=== PATIENT | male | born 1955 | race Caucasian/White ===

== ENCOUNTER 2017-05-27 06:02 | Day surgery (SDC) | payer OTHER ==
[2017-05-27 06:53] LABS: ADD MAN DIFF? NO
[2017-05-27 06:56] LABS: WHITE BLOOD COUNT 5.2 10^3/ul (4.8-10.8)
[2017-05-27 06:56] LABS: BASOPHILS % 0.4 % (0.0-2.0); EOSINOPHILS # 0.1 10^3/ul (0.0-0.5); EOSINOPHILS % 1.5 % (0.0-7.0); HEMATOCRIT 43.7 % (42.0-52.0); HEMOGLOBIN 15.3 g/dl (14.0-18.0); LYMPHOCYTES # 1.7 10^3/ul (0.8-2.9); LYMPHOCYTES % 31.9 % (15.0-51.0); MEAN CORPUSCULAR HEMOGLOBIN 28.3 pg (29.0-33.0); MEAN CORPUSCULAR VOLUME 80.9 fl (82.0-101.0); MEAN PLATELET VOLUME 9.1 fl (7.4-10.4); MONOCYTE # 0.3 10^3/ul (0.3-0.9); MONOCYTES % 5.4 % (0.0-11.0); NEUTROPHIL # 3.2 10^3/ul (1.6-7.5); NEUTROPHILS % 60.6 % (39.0-77.0); PLATELET COUNT 179 10^3/UL (140-415); RED CELL DISTRIBUTION WIDTH 12.3 % (11.5-14.5)
[2017-05-27] MEDS: SOD CHLORIDE 0.9% 1,000 ML IV ×2 (07:00→10:13)
[2017-05-27 07:13] LABS: ANION GAP 18 (8-16); BLOOD UREA NITROGEN 20 mg/dl (7-20); CALCIUM 8.9 mg/dl (8.4-10.2); CARBON DIOXIDE 25 mmol/L (21-31); CHLORIDE 105 mmol/L (97-110); CREATININE 0.97 mg/dl (0.61-1.24); GLUCOSE 110 mg/dl (70-220); POTASSIUM 3.9 mmol/L (3.5-5.1); SODIUM 144 mmol/L (135-144)
[2017-05-27 07:20] LABS: INR 1.08; PARTIAL THROMBOPLASTIN TIME 33.2 Sec (25.0-35.0); PROTIME 14.1 Sec (11.9-14.9); PT RATIO 1.1
[2017-05-27] MEDS ORDERED: HEPARIN 1000 UNITS/ML 10 ML INJ ×2 (07:44→09:27)
[2017-05-27] MEDS ORDERED: FENTAnyl 50 MCG/ML VIAL (07:44)
[2017-05-27] MEDS ORDERED: MIDAZOLAM 1 MG/ML 2 ML INJ (07:44)
[2017-05-27] MEDS ORDERED: LIDOCAINE 1% (MDV) 20 ML INJ (07:44)
[2017-05-27] MEDS ORDERED: VERAPAMIL 5 MG INJ (07:44)
[2017-05-27] MEDS ORDERED: IODIXANOL LOCM 100 ML BTL (07:44)
[2017-05-27] MEDS ORDERED: NITROGLYCERIN (IC) 100 MCG/ML INJ (07:44)
[2017-05-27] MEDS: GEMFIBROZIL 600 MG TAB PO (09:00)
[2017-05-27] MEDS: ATORVASTATIN 40 MG TAB PO (09:00)
[2017-05-27] MEDS ORDERED: BENAZEPRIL 40 MG TAB PO (09:00)
[2017-05-27] MEDS: ASPIRIN 81 MG TAB PO (09:00)
[2017-05-27] MEDS ORDERED: ASPIRIN 325 MG TAB (09:26)
[2017-05-27] MEDS ORDERED: CLOPIDOGREL 300 MG TAB (09:26)
[2017-05-27] MEDS ORDERED: IOHEXOL 350MG/ML 50 ML BTL (09:28)
[2017-05-27] MEDS ORDERED: AL HYDROX/MG HYDROX/SIMETH 30 ML CUP PO (10:00)
[2017-05-27] MEDS ORDERED: ONDANSETRON 4 MG INJ IV (10:00)
[2017-05-27] MEDS: ACETAMINOPHEN 325 MG TAB PO (15:42)
[2017-05-28] MEDS ORDERED: ASPIRIN (EC) 81 MG TAB PO (09:00)
[2017-05-28] MEDS ORDERED: CLOPIDOGREL 75 MG TAB PO (09:00)
== END 2017-05-27 17:53 | disposition home or self-care (01) ==
LOC: SDS 06:02 → ICU 10:19 → SDS 17:53
DX: I25.10 Atherosclerotic heart disease of native coronary artery without angina pectoris (principal); I10 Essential (primary) hypertension
CPT/HCPCS: 80048; 85025; 85610; 85730; 93005; 93458

== ENCOUNTER 2018-09-22 15:41 | Emergency (ER) | payer OTHER ==
[2018-09-22 16:26] LABS: ADD MAN DIFF? NO
[2018-09-22 16:29] LABS: BASOPHILS % 0.2 % (0.0-2.0); EOSINOPHILS # 0.1 10^3/ul (0.0-0.5); EOSINOPHILS % 0.6 % (0.0-7.0); HEMATOCRIT 42.5 % (42.0-52.0); HEMOGLOBIN 14.4 g/dl (14.0-18.0); LYMPHOCYTES # 1.3 10^3/ul (0.8-2.9); MEAN CORPUSCULAR HEMOGLOBIN 28.3 pg (29.0-33.0); MEAN CORPUSCULAR HGB CONC 33.9 g/dl (32.0-37.0); MEAN CORPUSCULAR VOLUME 83.5 fl (82.0-101.0); MONOCYTE # 0.4 10^3/ul (0.3-0.9); MONOCYTES % 5.2 % (0.0-11.0); NEUTROPHIL # 6.6 10^3/ul (1.6-7.5); NEUTROPHILS % 78.8 % (39.0-77.0); PLATELET COUNT 193 10^3/UL (140-415); RED BLOOD COUNT 5.09 10^6/ul (4.70-6.10); RED CELL DISTRIBUTION WIDTH 12.8 % (11.5-14.5)
[2018-09-22 16:29] LABS: WHITE BLOOD COUNT 8.4 10^3/ul (4.8-10.8)
[2018-09-22] MEDS: SOD CHLORIDE 0.9% 1,000 ML IV (16:37)
[2018-09-22 16:48] LABS: ALBUMIN/GLOBULIN RATIO 1.25; ALKALINE PHOSPHATASE 60 IU/L (42-121); ANION GAP 9 (5-13); ASPARTATE AMINO TRANSFERASE 32 IU/L (15-46); BILIRUBIN,INDIRECT 0.4 mg/dl (0-1.1); BILIRUBIN,TOTAL 0.4 mg/dl (0.2-1.3); BLOOD UREA NITROGEN 26 mg/dl (7-20); CALCIUM 9.1 mg/dl (8.4-10.2); CARBON DIOXIDE 24 mmol/L (21-31); CHLORIDE 105 mmol/L (97-110); CREATININE 1.15 mg/dl (0.61-1.24); Estimated GFR > 60 mL/min (>60); GLUCOSE 119 mg/dl (70-220); LIPASE 183 U/L (23-300); POTASSIUM 3.9 mmol/L (3.5-5.1); SODIUM 138 mmol/L (135-144); TOTAL PROTEIN 7.2 g/dl (6.1-8.1)
[2018-09-22 17:17] LABS: ALANINE AMINOTRANSFERASE 35 IU/L (13-69)
[2018-09-22] MEDS: SOD CHLORIDE 0.9% 100 ML (17:55)
[2018-09-22] MEDS: IOHEXOL 100 ML (17:55)
[2018-09-22 19:28] LABS: URINE BLOOD (Dip) POC Negative (NEGATIVE); URINE GLUCOSE (Dip) POC Negative (NEGATIVE); URINE KETONES (Dip) POC Negative (NEGATIVE); URINE LEUKOCYTE EST (Dip) POC Negative (NEGATIVE); URINE NITRITE (Dip) POC Negative (NEGATIVE); URINE TOTAL PROTEIN POC Negative (NEGATIVE)
[2018-09-22] MEDS: KETOROLAC 30 MG INJ IV (19:55)
== END 2018-09-22 21:58 | disposition home or self-care (01) ==
LOC: E/R 15:41
DX: E86.0 Dehydration (principal); M25.511 Pain in right shoulder; N28.1 Cyst of kidney, acquired; I10 Essential (primary) hypertension; I25.10 Atherosclerotic heart disease of native coronary artery without angina pectoris
CPT/HCPCS: 36415; 71275; 73030-RT; 74176; 80053; 81003; 83690; 85025; 96361; 96374; 99285-25